=== PATIENT | female | born 1990 | race Caucasian/White ===

== ENCOUNTER 2024-09-04 07:50 | Emergency (ER) | payer BC ==
[~2024-09-04] VITALS: Ht 162.6 cm; Wt 67.6 kg
[2024-09-04] MEDS ORDERED: PRENATAL + DHA1 EAC1 PO (08:06)
[2024-09-04] MEDS ORDERED: SODIUM CHLORIDE 0.9% 1,000 ML IV PRN (08:15)
[2024-09-04] MEDS ORDERED: fentaNYL citrate 100 MCG/2 ML VIAL IV PRN (08:15)
[2024-09-04 08:28] LABS: BASOPHILS 0.2 % (0-2); EOSINOPHILS 1.7 % (0-6); HEMATOCRIT 39.3 % (35.0-50.0); HEMOGLOBIN 13.2 g/dL (12.0-18.0); LYMPHOCYTES 10.9 % (24-44); MCH 29.8 (27-36); MCHC 33.7 g/dl (30-36); MCV 88.2 fl (81-99); MONOCYTES 6.1 % (0-12); NEUTROPHILS 81.1 % (39-80); PLATELET COUNT 207 K/uL (140-440); RBC 4.45 M/ul (4.3-5.7); RDW 13.1 (10.5-15.0)
[2024-09-04 08:47] LABS: ALBUMIN 3.3 g/dL (3.4-5.0); ALBUMIN/GLOBULIN RATIO 0.8 (1.1-2.4); ANION GAP 16.6 (7-21); BILIRUBIN, TOTAL 0.5 mg/dL (0.2-1.0); BUN/CREATININE RATIO 10.41 (6.0-28.6); CALCIUM 9.1 mg/dL (8.5-10.1); CREATININE, SERUM 0.48 mg/dL (0.55-1.02); POTASSIUM 3.6 mmol/L (3.5-5.1); PROTEIN, TOTAL 7.4 g/dL (6.4-8.2)
[2024-09-04] MEDS ORDERED: HYDROmorphone HCL 1 MG/ML SYR IV PRN (09:30)
[2024-09-04] MEDS ORDERED: ondansetron HCL 4 MG/2 ML VIAL IV ONE (09:45)
[2024-09-04] MEDS ORDERED: MORPHINE SULFATE 4 MG/ML VIAL IV PRN (12:00)
[2024-09-04 12:49] LABS: BILIRUBIN, URINE NEGATIVE (negative); BLOOD/HGB, URINE NEGATIVE (Negative); KETONE, URINE >=80 (Negative); LEUK ESTERASE, URINE NEGATIVE (negative); NITRITE, URINE NEGATIVE (negative)
[2024-09-04] MEDS ORDERED: ONDANSETRON ODT8 MG PO (13:19)
[2024-09-04 13:31] VITALS: BP 110/61
== END 2024-09-04 13:33 | disposition home or self-care (01) ==
LOC: ED 07:50
PROVIDERS: Emergency Medicine
DX: O34.12 Maternal care for benign tumor of corpus uteri, second trimester (principal); D25.2 Subserosal leiomyoma of uterus; O99.012 Anemia complicating pregnancy, second trimester; Z3A.16 16 weeks gestation of pregnancy; Z79.899 Other long term (current) drug therapy
CPT/HCPCS: 36415; 74177; 76815; 80053; 81003; 83605; 83690; 85018; 85025; 96375; 99284-25; J1171; J2270; J2405; J3010; J7030